=== PATIENT | male | born 2000 | race Caucasian/White ===

== ENCOUNTER 2018-06-06 10:56 | Outpatient (REF) | payer MEDICAID, SELFPAY ==
[2018-06-06 13:31] LABS: HCT 45.1 % (40.0-50.0); HGB 15.7 g/dL (13.5-17.5)
[2018-06-06 15:52] LABS: Iron 116 ug/dL (50-175); Total Iron Binding Capacity 383 ug/dL (250-450); Transferrin Sat 30 % (20-55)
[2018-06-06 16:01] LABS: Ferritin 62 ng/mL (8-388)
[2018-06-06 17:40] LABS: Vitamin D 25 Total 30.6 ng/ml (30-100)
== END 2018-06-06 10:57 ==
LOC: NCHCN 10:56
PROVIDERS: PCP Nurse Practitioner; Visit Provider Nurse Practitioner
DX: E55.9 Vitamin D deficiency, unspecified (principal)
CPT/HCPCS: 82306; 82728; 83540; 83550; 85014; 85018

== ENCOUNTER 2018-06-15 23:10 | Emergency (ER) | payer MEDICAID, SELFPAY ==
[2018-06-15 23:24] VITALS: BP 122/67; PULSE 81; RESP 16; TEMP 36.7; O2SAT 98
--- NOTE | 2018-06-15 23:37 | ED.GENADUL ---
Disposition Clinical Impression: Impacted cerumen of right ear Condition: Stable Instructions: Cerumen Impaction (ED) Medical Decision Making - Medical Decision Making 18-year-old male presents with right ear pain. Concern for tick in the ear which is not the case. There is a small area of dried blood. Cerumen impaction was irrigated by nursing staff, patient had improvement, he is appropriate discharged home History of Present Illness - General Chief complaint: EarProblem Stated complaint: TICK IN EAR Time Seen by Provider: 06/15/18 23:29 Source: patient, family, RN notes reviewed Mode of arrival: ambulatory Limitations: no limitations - History of Present Illness Initial comments: Ear pain: 18-year-old male with gradual onset of ear pain, right, over 3 days time. Minimally improved with home remedies including hydrogen peroxide and then seemed to worsen with using tweezers. His girlfriend looked in her ear and thought the patient may have a tick for which the seek evaluation tonight. -: days(s) Location: right Radiation: non-radiation Quality: aching Consistency: constant Improves with: none Worsens with: none - Related Data Unknown [No Known Home Meds] 03/15/18 Allergies Allergy/AdvReac Type Severity Reaction Status Date / Time No Known Allergies Allergy Unverified 06/15/18 23:31 Past Medical History - Past Medical History Medical history: no medical history Surgical history: other (knee surgery, tonsillectomy) - Social History Alcohol use: none Drug use: marijuana (occasionally) General Exam - General Limitations: no limitations General appearance: alert, in no apparent distress - Head Head exam: Present: atraumatic, normocephalic - Eye Eye exam: Present: normal apperance, PERRL, EOMI - ENT ENT exam: Present: TM's normal bilaterally, other (Right external ear canal with small area of skin dried blood and cerumen impaction.) - Neck Neck exam: Present: normal inspection, full ROM - Respiratory Respiratory exam: Present: respiratory distress - Neurological Exam Neurological exam: Present: alert, oriented X3 - Psychiatric Psychiatric exam: Present: normal affect, normal mood - Skin Skin exam: Present: warm, dry, intact Course Vital Signs - 24 hr 06/15/18 23:24 Temperature 36.7 C Pulse 81 Respiratory 16 Rate Blood Pressure 122/67 Pulse Oximetry 98
== END 2018-06-15 23:54 ==
PROVIDERS: Emergency Provider Emergency Medicine; PCP Nurse Practitioner
DX: H61.21 Impacted cerumen, right ear (principal)
CPT/HCPCS: 69209; 99282

== ENCOUNTER 2018-12-22 12:50 | Outpatient (REF) | payer MEDICAID, SELFPAY ==
[2018-12-22 22:16] LABS: TSH (W/Ref FT4) 2.67 uIU/mL (0.358-3.74)
== END 2018-12-22 13:10 ==
LOC: NCHCN 12:50
PROVIDERS: PCP Nurse Practitioner; Visit Provider Nurse Practitioner
DX: R63.5 Abnormal weight gain (principal)
CPT/HCPCS: 84443

== ENCOUNTER 2020-03-11 08:51 | Outpatient (CLI) | payer MEDICAID, SELFPAY ==
--- NOTE | 2020-03-11 09:40 | DI.MRI_ITS ---
EXAM: MR LOWER JOINT RT WO CLINICAL HISTORY: KNEE PAIN RT, [id number]. TECHNIQUE: Multiplanar multisequence MRI was performed. COMPARISON: MR RT KNEE from 08/17/2013 FINDINGS: MR examination knee was performed according to the usual protocol. Bones: There is abnormal signal in the patella, particularly involving inferior aspect of patella. M ildly abnormal signal also noted in lateral femoral condyle and lateral tibial plateau. No evidence of fracture. Articular cartilage: There is an articular cartilage defect of the posterior central aspect of latera l femoral condyle, essentially unchanged from prior MRI of 08/17/2013. There is cartilage thinning a nd abnormal signal at this site. Defect measures roughly 1 cm in diameter. No full-thickness chondr al defect seen. There is a chondral defect of the articular cartilage of the patella involving its inferior central a spect, a deep cleft is present along with area of abnormally increased and decreased signal and irre gularity of the articular surface at this site. Slight corresponding trochlear articular surface abn ormality also noted. Again, findings are largely unchanged from 2013. No significant articular cartilage defect of the medial tibiofemoral joint. Menisci: No meniscal tear seen. Meniscal attachments appear intact. Cruciate ligaments: Normal appearance of the cruciate ligaments, no tear identified. Collateral ligaments: Medial and lateral collateral ligaments and posterolateral corner structures ap pear intact. Extensor mechanism: Apart from the aforementioned articular cartilage defect of the patella with asso ciated bony signal changes, no other abnormality of the extensor mechanism is seen, the quadriceps an d patellar tendons appear normal. Hoffa fat pad and suprapatellar fat pads appear normal. 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 No other significant abnormality. DATA REPOSITORY:
== END 2020-03-11 09:11 ==
PROVIDERS: PCP Nurse Practitioner Family; Visit Provider Nurse Practitioner Family
DX: M25.561 Pain in right knee (principal); M22.2X1 Patellofemoral disorders, right knee; S83 Dislocation and sprain of joints and ligaments of knee
CPT/HCPCS: 73721